=== PATIENT | female | born 1995 | race Caucasian/White ===

== ENCOUNTER 2017-01-29 21:54 | Emergency (ER) | payer OTHER ==
[~2017-01-29] VITALS: Ht 170.2 cm; Wt 108.9 kg
[~2017-01-29 21:54] MED LIST: ADDERALL12.5 MG PO; AMBIEN5 MG PO; GEODON80 MG PO; PROZAC20 MG PO; TRILEPTAL600 MG PO
[2017-01-29 22:02] VITALS: BP 122/78
[2017-01-30 00:07] LABS: HEMATOCRIT 39.9 % (36.0-46.0); MCH 28.2 PG (29.0-34.0); MCHC 33.8 G/DL (30.0-36.0); MCV 83.5 FL (83-99); MEAN PLAT.VOLUME 9.2 uM^3 (9.5-12.4); PLATELET COUNT 353 K/uL (156-360); RBC DIS.WIDTH-SD 39.5 % (39-53); RED BLOOD COUNT 4.78 M/uL (3.80-5.20); WHITE BLOOD COUNT 11.2 K/uL (4.1-10.2)
[2017-01-30 00:19] LABS: CHLORIDE 104 mEq/L (99-109); POTASSIUM 4.1 mEq/L (3.7-5.4); SODIUM 139 mEq/L (136-147)
[2017-01-30 00:20] LABS: GLUCOSE 88 mg/dL (70-99)
[2017-01-30 00:22] LABS: ANION GAP 12 MEQ/L (2-14)
[2017-01-30 00:24] LABS: GFR ESTIMATE (CALCULATED) > 59 mL/min/
[2017-01-30 00:25] LABS: UREA NITROGEN (BUN) 8 mg/dL (9-23)
[2017-01-30 00:34] LABS: QUANTITATIVE HCG < 4.0 MIU/ML
[2017-01-30 01:12] LABS: ADD MIUA? NO; BILIRUBIN NEGATIVE; BLOOD NEGATIVE; COLOR STRAW ((YELLOW)); GLUCOSE (STRIP) NEGATIVE; KETONES NEGATIVE; LEUKOCYTES NEGATIVE; NITRITE NEGATIVE; PROTEIN (STRIP) NEGATIVE; SPECIFIC GRAVITY 1.004 (1.000-1.030); UCUL ADDED? NO; UROBILINOGEN 0.2 MG/DL (0.2-1.0)
[2017-01-30] MEDS ORDERED: SKELAXIN800 MG PO (01:28)
[2017-01-30] MEDS ORDERED: PERCOCET 5/31 TABLET PO (01:28)
[2017-01-30] MEDS ORDERED: MOTRIN600 MG PO (01:28)
== END 2017-01-30 01:48 | disposition home or self-care (01) ==
LOC: EME 21:54
PROVIDERS: Physician Assistant
DX: M54.5 Low back pain (principal); R11.0 Nausea; F17.200 Nicotine dependence, unspecified, uncomplicated; Z87.448 Personal history of other diseases of urinary system
CPT/HCPCS: 74176; 80048; 81003; 84702; 84703; 85027; 99281; 99284; J1885

== ENCOUNTER 2017-09-14 22:32 | Emergency (ER) | payer OTHER ==
[~2017-09-14] VITALS: Ht 165.1 cm; Wt 111.7 kg
[~2017-09-14 22:32] MED LIST changes: +MOTRIN600 MG PO; +PERCOCET 5/31 TABLET PO; +SKELAXIN800 MG PO
[2017-09-14 23:38] LABS: APPEARANCE SL.HAZY ((CLEAR)); BILIRUBIN NEGATIVE; BLOOD SMALL; COLOR YELLOW ((YELLOW)); GLUCOSE (STRIP) NEGATIVE; KETONES NEGATIVE; LEUKOCYTES LARGE; NITRITE NEGATIVE; PROTEIN (STRIP) 30; SPECIFIC GRAVITY 1.018 (1.000-1.030); UROBILINOGEN 0.2 MG/DL (0.2-1.0)
[2017-09-14 23:53] LABS: BACTERIA RARE /HPF; EPITHELIAL CELLS 1+ /HPF; MUCUS TRACE /LPF; RED BLOOD CELLS 20-30 /HPF (0-5); UCUL ADDED? YES; WHITE BLOOD CELLS TNTC /HPF (0-5)
[2017-09-15] MEDS ORDERED: PYRIDIUM200 MG PO (00:25)
[2017-09-15] MEDS ORDERED: KEFLEX500 MG PO (00:25)
[2017-09-15 01:47] VITALS: BP 130/98
== END 2017-09-15 01:47 | disposition home or self-care (01) ==
LOC: EME 22:32
DX: N39.0 Urinary tract infection, site not specified (principal); F17.200 Nicotine dependence, unspecified, uncomplicated
CPT/HCPCS: 81003; 87086; 99281; 99284

== ENCOUNTER 2017-10-30 00:46 | Emergency (ER) | payer SELFPAY ==
[~2017-10-30] VITALS: Ht 165.1 cm; Wt 111.8 kg
[~2017-10-30 00:46] MED LIST changes: +KEFLEX500 MG PO; +PYRIDIUM200 MG PO
[2017-10-30 01:38] LABS: HEMATOCRIT 37.3 % (36.0-46.0); HEMOGLOBIN 12.8 G/DL (11.9-15.5); MCH 28.8 PG (29.0-34.0); MCHC 34.3 G/DL (30.0-36.0); MCV 83.8 FL (83-99); PLATELET COUNT 412 K/uL (156-360); RBC DIS.WIDTH-CV 13.2 % (11.8-14.6); RBC DIS.WIDTH-SD 39.9 % (39-53); RED BLOOD COUNT 4.45 M/uL (3.80-5.20)
[2017-10-30 01:48] LABS: CHLORIDE 106 mEq/L (99-109); POTASSIUM 3.4 mEq/L (3.7-5.4); SODIUM 141 mEq/L (136-147)
[2017-10-30 01:53] LABS: SERUM ETHYL ALCOHOL 137 mg/dL
[2017-10-30 01:54] LABS: CREATININE 0.8 mg/dL (0.6-1.3); GFR ESTIMATE (CALCULATED) > 59 mL/min/
[2017-10-30 01:55] LABS: UREA NITROGEN (BUN) 8 mg/dL (9-23)
[2017-10-30 02:00] LABS: GLUCOSE 134 mg/dL (70-99)
[2017-10-30 02:07] LABS: ACETAMINOPHEN (TYLENOL) < 10 mcg/mL (10-30); SALICYLATE < 5.0 MG/DL (15-30)
[2017-10-30 02:13] LABS: AMPHETAMINE NEGATIVE (500 ng/mL); BARBITURATES NEGATIVE (200 ng/mL); BENZODIAZEPINES NEGATIVE (150 ng/mL); BUPRENORPHINE NEGATIVE (10 ng/mL); COCAINE NEGATIVE (150 ng/mL); METHADONE NEGATIVE (200 ng/mL); METHAMPHETAMINE NEGATIVE (500 ng/mL); OPIATES (MORPHINE) NEGATIVE (100 ng/mL); OXYCODONE NEGATIVE (100 ng/mL); PHENCYCLIDINE NEGATIVE (25 ng/mL); PROPOXYPHENE NEGATIVE (300 ng/mL); THC CANNABINOIDS PRESUMPTIVE POSITIVE (50 ng/mL); TRICYCLIC ANTIDEPRESSANTS NEGATIVE (300 ng/mL)
[2017-10-30 02:13] LABS: QUANTITATIVE HCG < 4.0 MIU/ML
[2017-10-30 05:20] VITALS: BP 126/56
== END 2017-10-30 05:21 | disposition home or self-care (01) ==
LOC: EME 00:46
DX: F32.9 Major depressive disorder, single episode, unspecified (principal); S60.812A Abrasion of left wrist, initial encounter; X78.9XXA Intentional self-harm by unspecified sharp object, initial encounter; Z91.5 Personal history of self-harm; Y90.6 Blood alcohol level of 120-199 mg/100 ml; F17.200 Nicotine dependence, unspecified, uncomplicated
CPT/HCPCS: 80048; 84702; 84999; 85027; 90837; 99281; 99284; G0480